=== PATIENT | female | born 1985 | race African-American/Black ===

== ENCOUNTER → 2018-07-21 | Day surgery (SDC) | payer OTHER ==
[~2018-07-21] MED LIST: BENTYL PO; FENTANYL CITRATE/PF 100MCG/2 ML INJ ONE; LIDOCAINE HCL 2% LOCAL INJ 5 ML SDV VIAL INJ ONE; LINZESS PO; MIDAZOLAM HCL 2 MG/2 ML VIAL ONE; PROPOFOL IV EMULSION 10 MG/ML 50 ML VIAL ONE
--- OUTSIDE RECORDS SUMMARY | 2018-07-21 09:28 | XMS REPORT | Clinical Summary ---
Author Author [facility] Organization [facility] Address Unknown Phone Unavailable Care Team Providers Care Electrical Foreman Name Role Phone Asked, No Pcp PCP Unavailable Allergies Not on File Medications Not on file Active Problems Not on file Encounters Care Team Description Date Type Specialty Dion Mccabe MD Stomach ache; Adnexal tenderness, right 03/24/2018 Hospital Radiology Encounter Dion Mccabe MD Stomach ache; Adnexal tenderness, right 03/24/2018 Hospital Radiology Encounter Dion Mccabe MD Stomach ache (Primary Dx); Adnexal tenderness, right 03/16/2018 Transcribe Access Orders Dion Mccabe MD Stomach ache 01/14/2018 Hospital Radiology Encounter Dion Mccabe MD Stomach ache (Primary Dx) 01/11/2018 Transcribe Access Orders after 07/20/2017 Social History Date Tobacco Use Types Packs/Day Years Used Never Assessed Sex Assigned at Date Recorded Not on file Industry Job Start Date Occupation Not on file Not on file Not on file Travel End Travel History Travel Start No recent travel history available. Last Filed Vital Signs Not on file Plan of Treatment Health Maintenance Due Date Last Done Comments CERVICAL CANCER SCREENING 2006 INFLUENZA VACCINE 01/05/2018 Procedures Comments Procedure Name Priority Date/Time Associated Diagnosis US PELVIC TRANSVAGINAL Routine 03/24/2018 Stomach ache 1:46 PM CDT Adnexal tenderness, right US PELVIC TRANSABDOMINAL Routine 03/24/2018 Stomach ache 1:46 PM CDT Adnexal tenderness, right XR KUB KIDNEY URETER Routine 03/24/2018 Stomach ache BLADDER 11:53 AM CDT Adnexal tenderness, right CT ABDOMEN W WO CONTRAST Routine 01/14/2018 Stomach ache 10:37 AM CDT after 07/20/2017 Results * US Pelvic Transabdominal (03/24/2018 1:46 PM CDT) Narrative Performed At EXAMINATION:US PELVIC TRANSABDOMINAL [facility] CLINICAL HISTORY:R10.9 Unspecified abdominal pain, R10.2 Pelvic and perineal pain, r10.9 r10.2 COMPARISON:07/10/2016 TECHNIQUE:Transabdominal and transvaginal ultrasound imaging of the pelvis. FINDINGS: UTERUS:The uterus measures 7.9 x 5.2 x 4.7 cm.Uterus is retroflexed. There are 2 anechoic structures towards the uterine fundus measuring 7 and 5 mm, may represent some myometrial cysts. No other uterine lesions. ENDOMETRIUM:The endometrial echo-complex measures 5 mm, within normal limits. There is a small amount of fluid in the endometrial and endocervical canals. OVARIES/ADNEXA:The right ovary measures 3.3 x 1.7 x 1.6 cm.The left ovary measures 4.1 x 2.7 x 2.5 cm. They demonstrate normal vascularity. There is a complex 1.9 cm lesion within the left ovary with internal echogenicities and some peripheral hyperechogenicity. Its most suggestive of a corpus luteal cyst. Small follicles in the right ovary. PELVIS:Small amount of free fluid in the pelvis, likely physiologic in a female patient. There is some slightly prominent periuterine vessels. IMPRESSION: 1.Likely corpus luteal cyst left ovary. 2.Small free fluid in the pelvis, likely physiologic. 3.Very small fluid in the endometrial and endocervical canals. 4.Additional findings as above. [facility]-[id number] Procedure Note [facility], Radiology Results Incoming - 03/24/2018 2:27 PM CDT EXAMINATION: US PELVIC TRANSABDOMINAL CLINICAL HISTORY: R10.9 Unspecified abdominal pain, R10.2 Pelvic and perineal pain, r10.9 r10.2 COMPARISON: 07/10/2016 TECHNIQUE: Transabdominal and transvaginal ultrasound imaging of the pelvis. FINDINGS: UTERUS: The uterus measures 7.9 x 5.2 x 4.7 cm. Uterus is retroflexed. There are 2 anechoic structures towards the uterine fundus measuring 7 and 5 mm, may represent some myometrial cysts. No other uterine lesions. ENDOMETRIUM: The endometrial echo-complex measures 5 mm, within normal limits. There is a small amount of fluid in the endometrial and endocervical canals. OVARIES/ADNEXA: The right ovary measures 3.3 x 1.7 x 1.6 cm. The left ovary measures 4.1 x 2.7 x 2.5 cm. They demonstrate normal vascularity. There is a complex 1.9 cm lesion within the left ovary with internal echogenicities and some peripheral hyperechogenicity. Its most suggestive of a corpus luteal cyst. Small follicles in the right ovary. PELVIS: Small amount of free fluid in the pelvis, likely physiologic in a female patient. There is some slightly prominent periuterine vessels. IMPRESSION: 1. Likely corpus luteal cyst left ovary. 2. Small free fluid in the pelvis, likely physiologic. 3. Very small fluid in the endometrial and endocervical canals. 4. Additional findings as above. [facility]-[id number] Performing Organization Address [facility] Phone Number [facility] [address] [place] [address] * US Pelvic Transvaginal (03/24/2018 1:46 PM CDT) Narrative Performed At EXAMINATION:US PELVIC TRANSVAGINAL [facility] CLINICAL HISTORY:R10.9 Unspecified abdominal pain, R10.2 Pelvic and perineal pain, r10.9 r10.2 COMPARISON:07/10/2016 TECHNIQUE:Transabdominal and transvaginal ultrasound imaging of the pelvis. IMPRESSION: 1.See accession #IM [id number] [facility]-[id number] Procedure Note Interface, Radiology Results Incoming - 03/24/2018 2:13 PM CDT EXAMINATION: US PELVIC TRANSVAGINAL CLINICAL HISTORY: R10.9 Unspecified abdominal pain, R10.2 Pelvic and perineal pain, r10.9 r10.2 COMPARISON: 07/10/2016 TECHNIQUE: Transabdominal and transvaginal ultrasound imaging of the pelvis. IMPRESSION: 1. See accession #IM [id number] [facility]-[id number] Performing Organization Address [facility] Phone Number [facility] [address] [place] [address] * XR Kub Kidney Ureter Bladder (03/24/2018 11:53 AM CDT) Narrative Performed At PROCEDURE:XR KUB KIDNEY URETER BLADDER [facility] CLINICAL HISTORY:R10.9 Unspecified abdominal pain, R10.2 Pelvic and perineal pain, r10.9 r10.2 COMPARISON:July 11, 2016 TECHNIQUE: A single view of the abdomen was performed in the AP supine projection. FINDINGS: No indirect evidence of free air is seen.. No distended loops of small or large bowel are identified. Residual stool is present in the right hemicolon. No radiopaque calculus is identified in the abdomen. A tubal ligation clip which was projected centrally over the abdomen on the prior study is now seen located projected over the left upper quadrant of the abdomen. The 2 tubal ligation clips in the upper central pelvis are minimally changed from previous. The findings likely represent migration of a third tubal ligation clip to the left upper quadrant of the abdomen. IMPRESSION: Residual stool in the right hemicolon. Nonspecific bowel gas pattern. [id number] . Procedure Note Interface, Radiology Results Incoming - 03/24/2018 12:09 PM CDT PROCEDURE: XR KUB KIDNEY URETER BLADDER CLINICAL HISTORY: R10.9 Unspecified abdominal pain, R10.2 Pelvic and perineal pain, r10.9 r10.2 COMPARISON: July 11, 2016 TECHNIQUE: A single view of the abdomen was performed in the AP supine projection. FINDINGS: No indirect evidence of free air is seen.. No distended loops of small or large bowel are identified. Residual stool is present in the right hemicolon. No radiopaque calculus is identified in the abdomen. A tubal ligation clip which was projected centrally over the abdomen on the prior study is now seen located projected over the left upper quadrant of the abdomen. The 2 tubal ligation clips in the upper central pelvis are minimally changed from previous. The findings likely represent migration of a third tubal ligation clip to the left upper quadrant of the abdomen. IMPRESSION: Residual stool in the right hemicolon. Nonspecific bowel gas pattern. [id number] . Performing Organization Address City/State/Zipcode Phone Number [facility] [address] [place] [address] * CT Abdomen W Wo Contrast (01/14/2018 10:37 AM CDT) Narrative Performed At EXAMINATION: [facility] CT ABDOMEN W WO CONTRAST CLINICAL HISTORY: Abdominal pain. COMPARISON: May 17, 2017 TECHNIQUE: Contiguous 5 mm axial slices were performed from the hemidiaphragms to the iliac crests following administration of intravenous iodinated contrast without adverse reaction on a multidetector CT scanner using helical scanning technique followed by 2-D coronal and sagittal reconstructed images. Oral contrast was given for the procedure without adverse reaction. . A pre-intravenous contrast axial slice sequence was obtained from the hemidiaphragms to the iliac crests. The dose length product for the entire procedure is 474 mGy-cm. CT imaging was performed with iterative reconstruction technique and/or automated exposure control to reduce radiation dose. FINDINGS: 1. The lung parenchymal window settings demonstrate no abnormality in the visualized lung parenchymal bases . 2. No abnormality of the remaining intra-abdominal solid organs is seen. 3. The opacified small and large bowel are unremarkable. No evidence of wall thickening or dilatation is seen. No inflammatory changes are noted in the mesenteric fat adjacent to the bowel. The appendix is not visualized. 4. No intra-abdominal fluid collections, mesenteric masses, or retroperitoneal lymphadenopathy is seen. 5. The aorta is normal in caliber with no calcified or noncalcified atheromatous plaque formation.No abnormality of the inferior vena cava is noted.The gallbladder is normal. 6. The sagittal and coronal reconstructed images demonstrate no additional abnormality.. 7. Bone window settings demonstrate no gross acute bony abnormality. IMPRESSION: Unremarkable exam. [id number] Procedure Note Hm Interface, Radiology Results Incoming - 01/14/2018 10:56 AM CDT EXAMINATION: CT ABDOMEN W WO CONTRAST CLINICAL HISTORY: Abdominal pain. COMPARISON: May 17, 2017 TECHNIQUE: Contiguous 5 mm axial slices were performed from the hemidiaphragms to the iliac crests following administration of intravenous iodinated contrast without adverse reaction on a multidetector CT scanner using helical scanning technique followed by 2-D coronal and sagittal reconstructed images. Oral contrast was given for the procedure without adverse reaction. . A pre-intravenous contrast axial slice sequence was obtained from the hemidiaphragms to the iliac crests. The dose length product for the entire procedure is 474 mGy-cm. CT imaging was performed with iterative reconstruction technique and/or automated exposure control to reduce radiation dose. FINDINGS: 1. The lung parenchymal window settings demonstrate no abnormality in the visualized lung parenchymal bases . 2. No abnormality of the remaining intra-abdominal solid organs is seen. 3. The opacified small and large bowel are unremarkable. No evidence of wall thickening or dilatation is seen. No inflammatory changes are noted in the mesenteric fat adjacent to the bowel. The appendix is not visualized. 4. No intra-abdominal fluid collections, mesenteric masses, or retroperitoneal lymphadenopathy is seen. 5. The aorta is normal in caliber with no calcified or noncalcified atheromatous plaque formation.No abnormality of the inferior vena cava is noted. The gallbladder is normal. 6. The sagittal and coronal reconstructed images demonstrate no additional abnormality.. 7. Bone window settings demonstrate no gross acute bony abnormality. IMPRESSION: Unremarkable exam. [id number] Performing Organization Address City/State/Zipcode Phone Number [facility] [phone] [place] [address] after 07/20/2017 Insurance Payer Benefit Subscriber ID Type Phone Address Plan / Group xxxxxxxxxxx [facility] PIERRE xxxxxxxxxxx [facility] Advance Directives Patient has advance care planning documents on file. For more information, isaiah andino contact: Carlton Dodd [address] [place] [address]
== END | disposition home or self-care (01) ==
LOC: OR 09:16
PROVIDERS: ATTEND Internal Medicine
DX: K59.00 Constipation, unspecified (principal); K63.5 Polyp of colon; K29.50 Unspecified chronic gastritis without bleeding; K58.9 Irritable bowel syndrome, unspecified; K21.0 Gastro-esophageal reflux disease with esophagitis; B96.81 Helicobacter pylori [H. pylori] as the cause of diseases classified elsewhere; K64.0 First degree hemorrhoids; D72.820 Lymphocytosis (symptomatic); J45.909 Unspecified asthma, uncomplicated; Z86.2 Personal history of diseases of the blood and blood-forming organs and certain disorders involving the immune mechanism
CPT/HCPCS: 36415; 43239; 45380; 84702; J2001; J2250; J2704; 45384